=== PATIENT | male | born 1990 | race Caucasian/White ===

== ENCOUNTER 2024-09-09 07:46 | Outpatient (CLI) | payer OTHER, SELFPAY | END 2024-09-09 07:47 | disposition home or self-care (01) | PROVIDERS: PCP Family Medicine; Visit Provider Family Medicine | DX: Z00.00 Encounter for general adult medical examination without abnormal findings (principal); R79.89 Other specified abnormal findings of blood chemistry; R53.83 Other fatigue; E66.9 Obesity, unspecified; R14.0 Abdominal distension (gaseous); R19.5 Other fecal abnormalities; Z13.6 Encounter for screening for cardiovascular disorders; Z83.79 Family history of other diseases of the digestive system | CPT/HCPCS: 80053; 80061; 84403; 84443; 86140 ==